=== PATIENT | female | born 1975 | race Caucasian/White ===

== ENCOUNTER 2024-02-27 13:07 | Outpatient (AMB) | payer MEDICAID, SELFPAY ==
[2024-02-27 13:26] VITALS: BP 136/83; PULSE 87; RESP 18; TEMP 36.4; O2SAT 96; BMI 27.6
--- NOTE | 2024-02-27 13:26 | PD.ORTHCLVIS ---
Vital signs 02/27/24 13:26 Height 1.68 m Height Method Stated Weight 77.564 kg Weight Measurement Method Standing Scale BMI 27.6 BP 136/83 H Blood Pressure Source Automatic Cuff Blood Pressure Location Right Upper Arm Position Sitting Respiration 18 Pulse 87 Pulse Source Monitor Temp 97.6 F Temp Source Temporal Artery Scan Pulse Oximetry (%) 96 Oxygen Delivery Method Room Air Med/Allergies Allergies & Medications Allergies No Known Allergies Allergy (Verified 02/27/24 13:27) Medication Reconciliation ascorbic acid (vitamin C) 1,000 mg capsule 1 g PO Q6H 02/27/24 [History Confirmed 02/27/24] cyclobenzaprine 5 mg tablet 5 mg PO QHS 02/27/24 [History Confirmed 02/27/24] fluticasone propionate 50 mcg/actuation blister powder for inhalation 1 inh inhalation BID 02/27/24 [History Confirmed 02/27/24] meloxicam 7.5 mg tablet 7.5 mg PO QDAY #45 tabs 02/27/24 [Rx] metformin 500 mg tablet 500 mg PO QDAY 02/27/24 [History Confirmed 02/27/24] naproxen 500 mg tablet 500 mg PO BID 02/27/24 [History Confirmed 02/27/24] omega-3 fatty acids-fish oil 360 mg-1,200 mg capsule (Fish Oil) 1 cap PO QDAY 02/27/24 [History Confirmed 02/27/24] rhubarb root extract 4 mg tablet (Estroven Complete Menopause Relief) mg PO 02/27/24 [History Confirmed 02/27/24] Subjective Visit Visit for: new patient and knee (BILATERAL) Immunization / Flu Flu Vaccine in the Last 12 Months: No Flu Vaccine Exclusion Criteria: No Exclusion Criteria History of Present Illness Chief complaint: BILATERAL OA Patient is a 48-year-old female with bilateral knee pain worse on the right. This been ongoing for several years. She had an MRI which shows no meniscal tear but bone bruises at that time. There also shows evidence of arthritis. She has continued persistent knee pain worse immediately. She is able to walk with no assistive device. She is tried naproxen with some relief Pain Pain level (0-10): 6 Pain duration: ON AND OFF Pain location: inside (medial) and outside (lateral) Pain quality: dull and aching Pain timing: night and increases with activity Associated signs & symptoms: none Ambulatory data Ambulatory device: none Treatments Number of previous injections: 11 Improvement with previous injections: No Number of Physical Therapy sessions: 12 Improvement with PT: No Improvement with NSAIDS: no Review of Systems Review of Systems: All systems negative unless otherwise noted in HPI. Exam Exam Patient is in no acute distress and is cooperative with the examination today. Breathing is nonlabored. In no respiratory distress. Bilateral extremities were evaluated and demonstrates sensation intact to light touch. Palpable pedal pulses are present. No significant edema is present. Bilateral hips were examined. The patient has no pain with log roll of the hips. Internal rotation to 30 degrees and external rotation to 30 degrees is painless. Negative FADIR. The left knee was examined. The left knee is in [varus] alignment. Range of motion from [0-115] degrees. Knee is stable to varus and valgus as well as AP translation with <5mm. Patient has a [negative] McMurrays. There is [no] pain with patellofemoral compression and [no] crepitus noted. The knee is [tender] to palpation [medially]. The right knee was also examined. The right knee is in [varus] alignment. Range of motion from [0-120] degrees. Knee is stable to varus and valgus as well as AP translation with <5mm. Patient has a [negative] McMurrays. There is [no] pain with patellofemoral compression and [no] crepitus noted. The knee is [tender] to palpation [medially]. X-rays demonstrate mild to moderate arthritis bilaterally. There is medial joint space narrowing. Assessment and Plan Problem List (1) Degenerative arthritis of knee, bilateral: Status: Acute Plan: Patient is a 48-year-old female with bilateral knee pain and bilateral knee arthritis. We discussed nonoperative Options for mild to moderate arthritis. We prescribed her meloxicam discussed that we can do an injection at the next visit. She will need authorization with her insurance. We will see her at the next available visit for injection Office Procedures GNS Level of Care Nursing/Assessment Patient Status: Initial/New Patient Nursing Assessment/Reassesment: Medication Reconciliation, Update PMH in EMR and Vital Signs Coordination of Care: Complex Care and Chronic Disease 1-5, Education Complex Pt/Fam, Consent,records obtained, informed consent, 1 Ins Authorization, Lab and Imaging orders, Results/Orders obtained and Staff clarify orders Special Needs: Language special needs New Patient Charge New Patient Point Assignment: 1124 New Patient Point Charge: GROUP RESERVATIONS COORDINATOR Level 4 (8157-4210) Past Medical History Past Medical History Have you ever been diagnosed with any of the following: Respiratory Problems Smoking: No Smoking Exposure: No
== END 2024-02-27 13:36 | disposition home or self-care (01) ==
PROVIDERS: Supervising Provider Orthopaedic Surgery Adult Reconstructive Orthopaedic Surgery; Visit Provider Orthopaedic Surgery Adult Reconstructive Orthopaedic Surgery
DX: M17.0 Bilateral primary osteoarthritis of knee (principal); M25.562 Pain in left knee; M25.561 Pain in right knee
CPT/HCPCS: 99204; G0463

== ENCOUNTER 2024-03-19 10:05 | Outpatient (AMB) | payer MEDICAID, SELFPAY ==
[2024-03-19 10:33] VITALS: BP 127/84; PULSE 81; RESP 18; TEMP 36.4; O2SAT 97; BMI 27.5
--- NOTE | 2024-03-19 10:33 | PD.ORTHCLVIS ---
Vital signs 03/19/24 10:33 Height 1.68 m Height Method Stated Weight 77.763 kg Weight Measurement Method Standing Scale BMI 27.5 BP 127/84 Blood Pressure Source Automatic Cuff Blood Pressure Location Right Upper Arm Position Sitting Respiration 18 Pulse 81 Pulse Source Monitor Temp 97.6 F Temp Source Temporal Artery Scan Pulse Oximetry (%) 97 Oxygen Delivery Method Room Air Med/Allergies Allergies & Medications Allergies No Known Allergies Allergy (Verified 03/19/24 10:33) Medication Reconciliation ascorbic acid (vitamin C) 1,000 mg capsule 1 g PO Q6H 02/27/24 [History Confirmed 03/19/24] cyclobenzaprine 5 mg tablet 5 mg PO QHS 02/27/24 [History Confirmed 03/19/24] fluticasone propionate 50 mcg/actuation blister powder for inhalation 1 inh inhalation BID 02/27/24 [History Confirmed 03/19/24] meloxicam 7.5 mg tablet 7.5 mg PO QDAY #45 tabs 02/27/24 [Rx Confirmed 03/19/24] metformin 500 mg tablet 500 mg PO QDAY 02/27/24 [History Confirmed 03/19/24] naproxen 500 mg tablet 500 mg PO BID 02/27/24 [History Confirmed 03/19/24] omega-3 fatty acids-fish oil 360 mg-1,200 mg capsule (Fish Oil) 1 cap PO QDAY 02/27/24 [History Confirmed 03/19/24] rhubarb root extract 4 mg tablet (Estroven Complete Menopause Relief) mg PO 02/27/24 [History Confirmed 03/19/24] Subjective Visit Visit for: follow up visit and knee Immunization / Flu Flu Vaccine in the Last 12 Months: Yes Flu Vaccine Exclusion Criteria: Already Received History of Present Illness Chief complaint: REQ KNEE INJECTIONS Patient is a 48-year-old female with bilateral knee pain worse on the right. This been ongoing for several years. She had an MRI which shows no meniscal tear but bone bruises at that time. There also shows evidence of arthritis. She has continued persistent knee pain worse immediately. She is able to walk with no assistive device. She has tried naproxen with some relief. She Wants bilateral knee injections today Pain Pain level (0-10): 4 Pain duration: COMES AND GOES Pain location: outside (lateral) and anterior Pain quality: sharp, dull and aching Pain timing: increases with activity and stairs Associated signs & symptoms: stiffness Ambulatory data Ambulatory device: none Treatments Number of previous injections: 11 Improvement with previous injections: No Number of Physical Therapy sessions: 12 Improvement with PT: No Improvement with NSAIDS: n/a Review of Systems Review of Systems: All systems negative unless otherwise noted in HPI. Exam Exam Patient is in no acute distress and is cooperative with the examination today. Breathing is nonlabored. In no respiratory distress. Bilateral extremities were evaluated and demonstrates sensation intact to light touch. Palpable pedal pulses are present. No significant edema is present. Bilateral hips were examined. The patient has no pain with log roll of the hips. Internal rotation to 30 degrees and external rotation to 30 degrees is painless. Negative FADIR. The left knee was examined. The left knee is in [varus] alignment. Range of motion from [0-115] degrees. Knee is stable to varus and valgus as well as AP translation with <5mm. Patient has a [negative] McMurrays. There is [no] pain with patellofemoral compression and [no] crepitus noted. The knee is [tender] to palpation [medially]. The right knee was also examined. The right knee is in [varus] alignment. Range of motion from [0-120] degrees. Knee is stable to varus and valgus as well as AP translation with <5mm. Patient has a [negative] McMurrays. There is [no] pain with patellofemoral compression and [no] crepitus noted. The knee is [tender] to palpation [medially]. X-rays demonstrate mild to moderate arthritis bilaterally. There is medial joint space narrowing. Assessment and Plan Problem List (1) Degenerative arthritis of knee, bilateral: Status: Acute Plan: Patient is a 48-year-old female with bilateral knee pain and bilateral knee arthritis. We discussed nonoperative Options for mild to moderate arthritis. We prescribed her meloxicam discussed that we can do an injection at the next visit. She will need authorization with her insurance. Recommend knee cortisone injections as patient would like to proceed with conservative treatment at this time. The risks and benefits of the procedure were reviewed with the patient and patient gave verbal consent to continue with the procedure. Procedure: performed by Dr. Landon Using sterile technique the Bilateral knees were thoroughly prepped with alcohol, and approximately 1 cc of Kenalog 40 mg/mL and 4 cc of 1% lidocaine was injected into each knee without resistance into the medial tibial femoral joint space. The patient tolerated the procedure. Office Procedures GNS Level of Care Nursing/Assessment Patient Status: Established Patient Nursing Assessment/Reassesment: Medication Reconciliation, Update PMH in EMR and Vital Signs Coordination of Care: Complex Care and Chronic Disease 1-5, Education Complex Pt/Fam, Consent,records obtained, informed consent, Results/Orders obtained and Staff clarify orders Special Needs: Language special needs Established Patient Charge Established Patient Point Assignment: 95 Established Patient Point Charge: EP Level 3 (80-115) Surgical Proc/IM SQ injection Major Surgical Procedure: Yes (bilateral knee injection) Medication Given Medication Given Medication Given: Yes Documented Dose Given: 8 Route: Infiitration Medication Given Medication Given Medication Given: Yes Documented Dose Given: 2 Route: Infiitration Office Meds Xylocaine 10 mg/mL (1 %) injection solution Performing Provider: Robert Landon MD Performing Location: [facility] Administered by: Robert Landon MD on 03/19/24 13:31 Dose Route Admin Location Dispensed Lot Number Expiration Date [facility] [employer] Tender 40 mL Infiltration 40 mL [id number] 12/21/26 41656-201-01 [employer] triamcinolone acetonide 40 mg/mL suspension for injection Performing Provider: Robert Landon MD Performing Location: [facility] Administered by: Robert Landon MD on 03/19/24 13:31 Dose Route Admin Location Dispensed Lot Number Expiration Date [facility] [employer] Tender 80 mg Infiltration 2 mL [id number] 09/20/25 6032-2272-11 [employer]ENTER[employer] Past Medical History Past Medical History Have you ever been diagnosed with any of the following: Respiratory Problems Smoking: No Smoking Exposure: No
== END 2024-03-19 10:50 | disposition home or self-care (01) ==
LOC: HODSRG 10:05
PROVIDERS: Supervising Provider Orthopaedic Surgery Adult Reconstructive Orthopaedic Surgery; Visit Provider Orthopaedic Surgery Adult Reconstructive Orthopaedic Surgery
DX: M17.0 Bilateral primary osteoarthritis of knee (principal); M25.562 Pain in left knee; M25.561 Pain in right knee
CPT/HCPCS: 20610; 99213; J3301; J3490; G0463

== ENCOUNTER 2024-06-21 14:59 | Outpatient (AMB) | payer MEDICAID, SELFPAY ==
[2024-06-21 15:18] VITALS: BP 144/83; PULSE 82; RESP 19; TEMP 36.4; O2SAT 97; BMI 28.0
--- NOTE | 2024-06-21 15:18 | ORTHONT_ITS ---
Vital signs 06/21/24 15:18 Height 1.68 m Height Method Stated Weight 79.038 kg Weight Measurement Method Standing Scale BMI 28.0 BP 144/83 H Blood Pressure Source Automatic Cuff Blood Pressure Location Right Lower Arm Position Sitting Respiration 19 Pulse 82 Pulse Source Monitor Temp 97.6 F Temp Source Temporal Artery Scan Pulse Oximetry (%) 97 Oxygen Delivery Method Room Air Med/Allergies Allergies & Medications Allergies No Known Allergies Allergy (Verified 06/21/24 15:19) Medication Reconciliation ascorbic acid (vitamin C) 1,000 mg capsule 1 g PO Q6H 02/27/24 [History Confirmed 06/21/24] cyclobenzaprine 5 mg tablet 5 mg PO QHS 02/27/24 [History Confirmed 06/21/24] fluticasone propionate 50 mcg/actuation blister powder for inhalation 1 inh inhalation BID 02/27/24 [History Confirmed 06/21/24] meloxicam 7.5 mg tablet 7.5 mg PO QDAY #45 tabs 02/27/24 [Rx Confirmed 06/21/24] metformin 500 mg tablet 500 mg PO QDAY 02/27/24 [History Confirmed 06/21/24] naproxen 500 mg tablet 500 mg PO BID 02/27/24 [History Confirmed 06/21/24] omega-3 fatty acids-fish oil 360 mg-1,200 mg capsule (Fish Oil) 1 cap PO QDAY 02/27/24 [History Confirmed 06/21/24] rhubarb root extract 4 mg tablet (Estroven Complete Menopause Relief) mg PO 02/27/24 [History Confirmed 06/21/24] Exam Exam Patient is in no acute distress and is cooperative with the examination today. Breathing is nonlabored. In no respiratory distress. Bilateral extremities were evaluated and demonstrates sensation intact to light touch. Palpable pedal pulses are present. No significant edema is present. Bilateral hips were examined. The patient has no pain with log roll of the hips. Internal rotation to 30 degrees and external rotation to 30 degrees is painless. Negative FADIR. The left knee was examined. The left knee is in [varus] alignment. Range of motion from [0-115] degrees. Knee is stable to varus and valgus as well as AP translation with <5mm. Patient has a [negative] McMurrays. There is [no] pain with patellofemoral compression and [no] crepitus noted. The knee is [tender] to palpation [medially]. The right knee was also examined. The right knee is in [varus] alignment. Range of motion from [0-120] degrees. Knee is stable to varus and valgus as well as AP translation with <5mm. Patient has a [negative] McMurrays. There is [no] pain with patellofemoral compression and [no] crepitus noted. The knee is [tender] to palpation [medially]. X-rays demonstrate mild to moderate arthritis bilaterally. There is medial joint space narrowing. Assessment and Plan Problem List (1) Degenerative arthritis of knee, bilateral: Status: Acute Plan: Patient is a 48-year-old female with bilateral knee pain and bilateral knee arthritis. We discussed nonoperative Options for mild to moderate arthritis. We will plan for a right knee injection today. Recommend knee cortisone injection as patient would like to proceed with conservative treatment at this time. The risks and benefits of the procedure were reviewed with the patient and patient gave verbal consent to continue with the procedure. Procedure: performed by Dr. Landon Using sterile technique the Right knee was thoroughly prepped with alcohol, and approximately 1 cc of Kenalog 40 mg/mL and 4 cc of 1% lidocaine was injected without resistance into the medial tibial femoral joint space. The patient tolerated the procedure. Office Procedures GNS Level of Care Nursing/Assessment Patient Status: Established Patient Nursing Assessment/Reassesment: Medication Reconciliation, Update PMH in EMR and Vital Signs Coordination of Care: Complex Care and Chronic Disease 1-5, Education Complex Pt/Fam, Consent,records obtained, informed consent, Education Simp Pt/Fam, Results/Orders obtained and Staff clarify orders Special Needs: Language special needs Established Patient Charge Established Patient Point Assignment: 110 Established Patient Point Charge: EP Level 3 (80-115) Surgical Proc/IM SQ injection Major Surgical Procedure: Yes (KNEE INJECTION) Medication Given Medication Given Medication Given: Yes Documented Dose Given: 4 Route: Infiitration Medication Given Medication Given Medication Given: Yes Documented Dose Given: 1 Route: Infiitration Office Meds Xylocaine 10 mg/mL (1 %) injection solution Performing Provider: Robert Landon MD Performing Location: [facility] Administered by: Robert Landon MD on 06/21/24 15:37 Dose Route Admin Location Dispensed Lot Number Expiration Date [employer] Room Supervisor 20 mL Infiltration 20 mL [id number] 10/22/27 28262-522-92 [employer]ADA KASPER triamcinolone acetonide 40 mg/mL suspension for injection Performing Provider: Robert Landon MD Performing Location: [facility] Administered by: Robert Landon MD on 06/21/24 15:37 Dose Route Admin Location Dispensed Lot Number Expiration Date [facility] Cut[employer] Room Supervisor 40 mg Infiltration KNEE 1 mL [id number] 09/20/25 5577-3197-08 TEV[employer] PARENTERAL MA Intake Visit Data Collection New Patient or Established: Established Patient (seen at [facility] within 3 years) Reason for Visit:: 3MONTH F/U KNEE INJECTION BILATERAL Director Of Business Continuity Required: Yes PCP or OBGYN visit in last 3 months: Yes Hx Now: No Do You Feel Safe at Home: Yes Authorities Contacted: N/A Questionairres Past Medical History Past Medical History Have you ever been diagnosed with any of the following: Respiratory Problems Smoking: No Smoking Exposure: No Subjective Visit Visit for: follow up visit, knee (BILATERAL) and injections Immunization / Flu Flu Vaccine in the Last 12 Months: Yes Flu Vaccine Exclusion Criteria: Already Received History of Present Illness Chief complaint: right knee pain Patient is a 48-year-old female with bilateral knee pain worse on the right. This been ongoing for several years. She had an MRI which shows no meniscal t ear but bone bruises at that time. There also shows evidence of mild arthritis. She has continued persistent knee pain worse immediately. She is able to walk with no assistive device. She has tried naproxen with some relief. She Wants bilateral knee injections today Personal History Red flag PMH: none Pain Pain level (0-10): 7 Pain duration: RIGHT KNEE Pain location: inside (medial) and outside (lateral) Pain timing: stairs Associated signs & symptoms: weakness and stiffness Ambulatory data Ambulatory device: none Treatments Number of previous injections: 1 Improvement with previous injections: Yes Improvement with PT: Yes Improvement with NSAIDS: yes Review of Systems Review of Systems: All systems negative unless otherwise noted in HPI.
== END 2024-06-21 15:48 | disposition home or self-care (01) ==
PROVIDERS: Supervising Provider Orthopaedic Surgery Adult Reconstructive Orthopaedic Surgery; Visit Provider Orthopaedic Surgery Adult Reconstructive Orthopaedic Surgery
DX: M17.0 Bilateral primary osteoarthritis of knee (principal)
CPT/HCPCS: 20610; 99213; J3301; J3490; G0463

== ENCOUNTER 2024-09-17 14:30 | Outpatient (AMB) | payer MEDICAID, SELFPAY ==
[2024-09-17 14:40] VITALS: BP 123/79; PULSE 89; RESP 18; TEMP 36.1; O2SAT 96; BMI 28.3
--- NOTE | 2024-09-17 14:40 | ORTHONT_ITS ---
Vital signs 09/17/24 14:40 Height 1.68 m Height Method Stated Weight 79.832 kg Weight Measurement Method Standing Scale BMI 28.3 BP 123/79 Blood Pressure Source Automatic Cuff Blood Pressure Location Right Upper Arm Position Sitting Respiration 18 Pulse 89 Pulse Source Monitor Temp 96.9 F Temp Source Temporal Artery Scan Pulse Oximetry (%) 96 Oxygen Delivery Method Room Air Med/Allergies Allergies & Medications Allergies No Known Allergies Allergy (Verified 09/17/24 14:41) Medication Reconciliation ascorbic acid (vitamin C) 1,000 mg capsule 1 g PO Q6H 02/27/24 [History Confirmed 09/17/24] cyclobenzaprine 5 mg tablet 5 mg PO QHS 02/27/24 [History Confirmed 09/17/24] fluticasone propionate 50 mcg/actuation blister powder for inhalation 1 inh inhalation BID 02/27/24 [History Confirmed 09/17/24] metformin 500 mg tablet 500 mg PO QDAY 02/27/24 [History Confirmed 09/17/24] naproxen 500 mg tablet 500 mg PO BID 02/27/24 [History Confirmed 09/17/24] omega-3 fatty acids-fish oil 360 mg-1,200 mg capsule (Fish Oil) 1 cap PO QDAY 02/27/24 [History Confirmed 09/17/24] rhubarb root extract 4 mg tablet (Estroven Complete Menopause Relief) mg PO 02/27/24 [History Confirmed 09/17/24] meloxicam 7.5 mg tablet 7.5 mg PO QDAY #45 tabs 09/17/24 [Rx] Exam Exam Patient is in no acute distress and is cooperative with the examination today. Breathing is nonlabored. In no respiratory distress. Bilateral extremities were evaluated and demonstrates sensation intact to light touch. Palpable pedal pulses are present. No significant edema is present. Bilateral hips were examined. The patient has no pain with log roll of the hips. Internal rotation to 30 degrees and external rotation to 30 degrees is painless. Negative FADIR. The left knee was examined. The left knee is in [varus] alignment. Range of motion from [0-115] degrees. Knee is stable to varus and valgus as well as AP translation with <5mm. Patient has a [negative] McMurrays. There is [no] pain with patellofemoral compression and [no] crepitus noted. The knee is [tender] to palpation [medially]. The right knee was also examined. The right knee is in [varus] alignment. Range of motion from [0-120] degrees. Knee is stable to varus and valgus as well as AP translation with <5mm. Patient has a [negative] McMurrays. There is [no] pain with patellofemoral compression and [no] crepitus noted. The knee is [tender] to palpation [medially]. X-rays demonstrate mild to moderate arthritis bilaterally. There is medial joint space narrowing. Assessment and Plan Problem List (1) Degenerative arthritis of knee, bilateral: Status: Acute Plan: Patient is a 48-year-old female with bilateral knee pain and bilateral knee arthritis. We discussed nonoperative Options for mild to moderate arthritis. We will see how she does with medication and bilateral knee injections today Recommend knee cortisone injections as patient would like to proceed with conservative treatment at this time. The risks and benefits of the procedure were reviewed with the patient and patient gave verbal consent to continue with the procedure. Procedure: performed by Dr. Landon Using sterile technique the Bilateral knees were thoroughly prepped with alcohol, and approximately 1 cc of Kenalog 40 mg/mL and 4 cc of 1% lidocaine was injected into each knee without resistance into the medial tibial femoral joint space. The patient tolerated the procedure. Office Procedures GNS Level of Care Nursing/Assessment Patient Status: Established Patient Nursing Assessment/Reassesment: Medication Reconciliation, Update PMH in EMR and Vital Signs Coordination of Care: Complex Care and Chronic Disease 1-5, Consent,records obtained, informed consent, Education Simp Pt/Fam, Results/Orders obtained and Staff clarify orders Special Needs: Language special needs ([place]ALL[place] ) Established Patient Charge Established Patient Point Assignment: 90 Established Patient Point Charge: EP Level 3 (80-115) Surgical Proc/IM SQ injection Major Surgical Procedure: Yes (BILATERAL KNEE PAIN) Medication Given Medication Given Medication Given: Yes Documented Dose Given: 8 Route: Infiitration Medication Given Medication Given Medication Given: Yes Documented Dose Given: 2 Route: Infiitration Office Meds Xylocaine 10 mg/mL (1 %) injection solution Performing Provider: Robert Landon MD Performing Location: [facility] Administered by: Robert Landon MD on 09/17/24 14:55 Dose Route Admin Location Dispensed Lot Number Expiration Date [facility] Consultant Rn 40 mL Infiltration 40 mL [id number] 08/22/27 46347-847-68 [employer]ADA [employer] triamcinolone acetonide 40 mg/mL suspension for injection Performing Provider: Robert Landon MD Performing Location: [facility] Administered by: Robert Landon MD on 09/17/24 14:55 Dose Route Admin Location Dispensed Lot Number Expiration Date [facility] Consultant Rn 80 mg Infiltration 2 mL [id number] 04/22/26 9808-1621-52 [employer]EV[employer] PARENTER[employer] [place] Intake Visit Data Collection New Patient or Established: Established Patient (seen at [facility] within 3 years) Reason for Visit:: FU 3 MNTH INJECTION Seen by Clinical Staff ONLY (RN/MA): No Business Developer Required: Yes PCP or OBGYN visit in last 3 months: Yes Hx Now: No Do You Feel Safe at Home: Yes Authorities Contacted: N/A Questionairres Past Medical History Past Medical History Have you ever been diagnosed with any of the following: Respiratory Problems Smoking: No Smoking Exposure: No Subjective Visit Visit for: knee (BILATERAL KNEE PAIN ) Immunization / Flu Flu Vaccine in the Last 12 Months: Yes Flu Vaccine Exclusion Criteria: Already Received History of Present Illness Chief complaint: right knee pain Patient is a 48-year-old female with bilateral knee pain worse on the right. This been ongoing for several years. She had an MRI which shows no meniscal t ear but bone bruises at that time. There also shows evidence of mild arthritis. She has continued persistent knee pain worse immediately. She is able to walk with no assistive device. She has tried naproxen with some relief. Personal History Red flag PMH: none Pain Pain level (0-10): 7 Pain duration: 2 WEEKS Pain location: anterior Pain quality: aching and shocking Pain timing: night and increases with activity Associated signs & symptoms: numbness, weakness and stiffness Ambulatory data Ambulatory device: none Walking distance (minutes): 30 Treatments Number of previous injections: 2 Improvement with previous injections: No Number of Physical Therapy sessions: 12 (SOME CHANGE) Improvement with PT: Yes Improvement with NSAIDS: n/a Review of Systems Review of Systems: All systems negative unless otherwise noted in HPI.
== END 2024-09-17 15:02 | disposition home or self-care (01) ==
LOC: HODSRG 14:30
PROVIDERS: Supervising Provider Orthopaedic Surgery Adult Reconstructive Orthopaedic Surgery; Visit Provider Orthopaedic Surgery Adult Reconstructive Orthopaedic Surgery
DX: M17.0 Bilateral primary osteoarthritis of knee (principal); M25.562 Pain in left knee; M25.561 Pain in right knee
CPT/HCPCS: 20610; 99213; J3301; J3490; G0463

== ENCOUNTER 2024-12-19 14:27 | Outpatient (AMB) | payer MEDICAID, SELFPAY ==
--- NOTE | 2024-12-19 14:39 | ORTHONT_ITS ---
Vital signs 12/19/24 14:41 Height 1.68 m Height Method Stated Weight 79.889 kg Weight Measurement Method Standing Scale BMI 28.3 BP 144/79 H Blood Pressure Source Automatic Cuff Blood Pressure Location Left Upper Arm Position Sitting Respiration 18 Pulse 82 Pulse Source Monitor Temp 97.2 F Temp Source Temporal Artery Scan Pulse Oximetry (%) 97 Oxygen Delivery Method Room Air Med/Allergies Allergies & Medications Allergies No Known Allergies Allergy (Verified 12/19/24 14:52) Medication Reconciliation ascorbic acid (vitamin C) 1,000 mg capsule 1 g PO Q6H 02/27/24 [History Confirmed 12/19/24] cyclobenzaprine 5 mg tablet 5 mg PO QHS 02/27/24 [History Confirmed 12/19/24] fluticasone propionate 50 mcg/actuation blister powder for inhalation 1 inh inhalation BID 02/27/24 [History Confirmed 12/19/24] metformin 500 mg tablet 500 mg PO QDAY 02/27/24 [History Confirmed 12/19/24] naproxen 500 mg tablet 500 mg PO BID 02/27/24 [History Confirmed 12/19/24] omega-3 fatty acids-fish oil 360 mg-1,200 mg capsule (Fish Oil) 1 cap PO QDAY 02/27/24 [History Confirmed 12/19/24] rhubarb root extract 4 mg tablet (Estroven Complete Menopause Relief) mg PO 02/27/24 [History Confirmed 12/19/24] meloxicam 7.5 mg tablet 7.5 mg PO QDAY #45 tabs 11/05/24 [Rx Confirmed 12/19/24] Exam Exam Patient is in no acute distress and is cooperative with the examination today. Breathing is nonlabored. In no respiratory distress. Bilateral extremities were evaluated and demonstrates sensation intact to light touch. Palpable pedal pulses are present. No significant edema is present. Bilateral hips were examined. The patient has no pain with log roll of the hips. Internal rotation to 30 degrees and external rotation to 30 degrees is painless. Negative FADIR. The left knee was examined. The left knee is in [varus] alignment. Range of motion from [0-115] degrees. Knee is stable to varus and valgus as well as AP translation with <5mm. Patient has a [negative] McMurrays. There is [no] pain with patellofemoral compression and [no] crepitus noted. The knee is [tender] to palpation [medially]. The right knee was also examined. The right knee is in [varus] alignment. Range of motion from [0-120] degrees. Knee is stable to varus and valgus as well as AP translation with <5mm. Patient has a [negative] McMurrays. There is [no] pain with patellofemoral compression and [no] crepitus noted. The knee is [tender] to palpation [medially]. X-rays demonstrate mild to moderate arthritis bilaterally. There is medial joint space narrowing. Assessment and Plan Problem List (1) Degenerative arthritis of knee, bilateral: Status: Acute Plan: Patient is a 48-year-old female with bilateral knee pain and bilateral knee arthritis. We discussed nonoperative Options for mild to moderate arthritis. We will see how she does with medication and bilateral knee injections today Recommend knee cortisone injection as patient would like to proceed with conservative treatment at this time. The risks and benefits of the procedure were reviewed with the patient and patient gave verbal consent to continue with the procedure. Procedure: performed by Dr. Landon Using sterile technique the left knee was thoroughly prepped with alcohol, and approximately 1 cc of Depo-Medrol 80mg/mL and 4 cc of 0.2% ropivacaine was injected without resistance into the medial tibial femoral joint space. The patient tolerated the procedure. Recommend knee cortisone injection as patient would like to proceed with conservative treatment at this time. The risks and benefits of the procedure were reviewed with the patient and patient gave verbal consent to continue with the procedure. Procedure: performed by Dr. Landon Using sterile technique the Right knee was thoroughly prepped with alcohol, and approximately 1 cc of Depo-Medrol 80mg/mL and 4 cc of 0.2% ropivacaine was injected without resistance into the medial tibial femoral joint space. The patient tolerated the procedure. Office Procedures GNS Level of Care Nursing/Assessment Patient Status: Established Patient Nursing Assessment/Reassesment: Medication Reconciliation, Update PMH in EMR and Vital Signs Coordination of Care: Complex Care and Chronic Disease 1-5, Education Complex Pt/Fam, Consent,records obtained, informed consent, Results/Orders obtained and Staff clarify orders Special Needs: Language special needs Established Patient Charge Established Patient Point Assignment: 95 Established Patient Point Charge: EP Level 3 (80-115) Surgical Proc/IM SQ injection Major Surgical Procedure: Yes (KNEE INJECTION ) Medication Given Medication Given Medication Given: Yes Documented Dose Given: 1 Route: Infiitration Medication Given Medication Given Medication Given: Yes Documented Dose Given: 1 Route: Infiitration Medication Given Medication Given Medication Given: Yes Documented Dose Given: 4 Route: Infiitration Medication Given Medication Given Medication Given: Yes Documented Dose Given: 4 Route: Infiitration Office Meds methylprednisolone acetate 80 mg/mL suspension for injection Performing Provider: Robert Landon MD Performing Location: [facility] Administered by: Robert Landon MD on 12/19/24 15:13 Dose Route Admin Location Dispensed Lot Number Expiration Date [facility] [employer] Social Worker 80 mg intra-articular KNEE 1 mL [id number] 09/21/26 [address]-8 [employer] methylprednisolone acetate 80 mg/mL suspension for injection Performing Provider: Robert Landon MD Performing Location: [facility] Administered by: Robert Landon MD on 12/19/24 15:13 Dose Route Admin Location Dispensed Lot Number Expiration Date [facility] Marriage And Family Social Worker 80 mg intra-articular KNEE 1 mL [id number] 09/21/26 [address]-8 [employer] ropivacaine (PF) 2 mg/mL (0.2 %) injection solution Performing Provider: Robert Landon MD Performing Location: [facility] Administered by: Robert Landon MD on 12/19/24 15:13 Dose Route Admin Location Dispensed Lot Number Expiration Date [place] [employer] Social Worker 20 mL Infiltration KNEE 20 mL [id number] 05/24/27 54535-811-27 [facility] ropivacaine (PF) 2 mg/mL (0.2 %) injection solution Performing Provider: Robert Landon MD Performing Location: [facility] Administered by: Robert Landon MD on 12/19/24 15:13 Dose Route Admin Location Dispensed Lot Number Expiration Date [place] [employer] Social Worker 20 mL Infiltration KNEE 20 mL [id number] 05/24/27 44601-271-60 [facility] [place] Intake Visit Data Collection New Patient or Established: Established Patient (seen at [facility] within 3 years) Reason for Visit:: 3 MONTH BILATERAL KNEE INJECTION Seen by Clinical Staff ONLY (RN/MA): No Recovery Agent Required: Yes PCP or OBGYN visit in last 3 months: Yes Hx Now: No Do You Feel Safe at Home: Yes Authorities Contacted: N/A Questionairres Past Medical History Past Medical History Have you ever been diagnosed with any of the following: Respiratory Problems Smoking: No Smoking Exposure: No Subjective Visit Visit for: knee (BILATERAL KNEE PAIN ) Immunization / Flu Flu Vaccine in the Last 12 Months: Yes Flu Vaccine Exclusion Criteria: Already Received History of Present Illness Chief complaint: right knee pain Patient is a 48-year-old female with bilateral knee pain worse on the right. This been ongoing for several years. She had an MRI which shows no meniscal tear but bone bruises at that time. There also shows evidence of mild arthritis. She has continued persistent knee pain worse immediately. She is able to walk with no assistive device. She has tried naproxen with some relief. She did well with the last injections and wants new ones Personal History Red flag PMH: none Pain Pain level (0-10): 7 Pain duration: 2 WEEKS Pain location: anterior Pain quality: aching and shocking Pain timing: night and increases with activity Associated signs & symptoms: numbness, weakness and stiffness Ambulatory data Ambulatory device: none Walking distance (minutes): 30 Treatments Number of previous injections: 2 Improvement with previous injections: No Number of Physical Therapy sessions: 12 (SOME CHANGE) Improvement with PT: Yes Improvement with NSAIDS: n/a Review of Systems Review of Systems: All systems negative unless otherwise noted in HPI.
[2024-12-19 14:41] VITALS: BP 144/79; PULSE 82; RESP 18; TEMP 36.2; O2SAT 97; BMI 28.3
== END 2024-12-19 14:54 | disposition home or self-care (01) ==
PROVIDERS: Supervising Provider Orthopaedic Surgery Adult Reconstructive Orthopaedic Surgery; Visit Provider Orthopaedic Surgery Adult Reconstructive Orthopaedic Surgery
DX: M17.0 Bilateral primary osteoarthritis of knee (principal); M25.562 Pain in left knee; M25.561 Pain in right knee
CPT/HCPCS: 20610; 99213; J1010; J2795; G0463

== ENCOUNTER 2025-03-27 13:56 | Outpatient (AMB) | payer MEDICAID, SELFPAY ==
--- NOTE | 2025-03-27 14:47 | PD.ORTHCLVIS ---
Med/Allergies Allergies & Medications Allergies No Known Allergies Allergy (Verified 12/19/24 14:52) Exam Exam Patient is in no acute distress and is cooperative with the examination today. Breathing is nonlabored. In no respiratory distress. Bilateral extremities were evaluated and demonstrates sensation intact to light touch. Palpable pedal pulses are present. No significant edema is present. Bilateral hips were examined. The patient has no pain with log roll of the hips. Internal rotation to 30 degrees and external rotation to 30 degrees is painless. Negative FADIR. The left knee was examined. The left knee is in [varus] alignment. Range of motion from [0-115] degrees. Knee is stable to varus and valgus as well as AP translation with <5mm. Patient has a [negative] McMurrays. There is [no] pain with patellofemoral compression and [no] crepitus noted. The knee is [tender] to palpation [medially]. The right knee was also examined. The right knee is in [varus] alignment. Range of motion from [0-120] degrees. Knee is stable to varus and valgus as well as AP translation with <5mm. Patient has a [negative] McMurrays. There is [no] pain with patellofemoral compression and [no] crepitus noted. The knee is [tender] to palpation [medially]. X-rays demonstrate mild to moderate arthritis bilaterally. There is medial joint space narrowing. Assessment and Plan Problem List (1) Degenerative arthritis of knee, bilateral: Status: Acute Plan: Patient is a 48-year-old female with bilateral knee pain and bilateral knee arthritis. We discussed nonoperative Options for mild to moderate arthritis. We will see how she does with medication and bilateral knee injections today Recommend knee cortisone injection as patient would like to proceed with conservative treatment at this time. The risks and benefits of the procedure were reviewed with the patient and patient gave verbal consent to continue with the procedure. Procedure: performed by Dr. Landon Using sterile technique the left knee was thoroughly prepped with alcohol, and approximately 1 cc of Depo-Medrol 80mg/mL and 4 cc of 0.2% ropivacaine was injected without resistance into the medial tibial femoral joint space. The patient tolerated the procedure. Recommend knee cortisone injection as patient would like to proceed with conservative treatment at this time. The risks and benefits of the procedure were reviewed with the patient and patient gave verbal consent to continue with the procedure. Procedure: performed by Dr. Landon Using sterile technique the Right knee was thoroughly prepped with alcohol, and approximately 1 cc of Depo-Medrol 80mg/mL and 4 cc of 0.2% ropivacaine was injected without resistance into the medial tibial femoral joint space. The patient tolerated the procedure. Questionairres Past Medical History Past Medical History Have you ever been diagnosed with any of the following: Respiratory Problems Smoking: No Smoking Exposure: No Subjective Visit Visit for: knee (BILATERAL KNEE PAIN ) Immunization / Flu Flu Vaccine in the Last 12 Months: Yes Flu Vaccine Exclusion Criteria: Already Received History of Present Illness Chief complaint: right knee pain Patient is a 48-year-old female with bilateral knee pain worse on the right. This been ongoing for several years. She had an MRI which shows no meniscal tear but bone bruises at that time. There also shows evidence of mild arthritis. She has continued persistent knee pain worse immediately. She is able to walk with no assistive device. She has tried naproxen with some relief. She did well with the last injections and wants new ones Personal History Red flag PMH: none Pain Pain level (0-10): 7 Pain duration: 2 WEEKS Pain location: anterior Pain quality: aching and shocking Pain timing: night and increases with activity Associated signs & symptoms: numbness, weakness and stiffness Ambulatory data Ambulatory device: none Walking distance (minutes): 30 Treatments Number of previous injections: 2 Improvement with previous injections: No Number of Physical Therapy sessions: 12 (SOME CHANGE) Improvement with PT: Yes Improvement with NSAIDS: n/a Review of Systems Review of Systems: All systems negative unless otherwise noted in HPI.
--- NOTE | 2025-03-27 15:09 | ORTHONT_ITS ---
Vital signs 03/27/25 15:21 Height 1.68 m Height Method Measured Weight 79.889 kg Weight Measurement Method Standing Scale BMI 28.3 BP 130/84 Blood Pressure Source Automatic Cuff Blood Pressure Location Left Upper Arm Position Sitting Respiration 18 Pulse 91 Pulse Source Monitor Temp 97.8 F Temp Source Temporal Artery Scan Pulse Oximetry (%) 97 Oxygen Delivery Method Room Air Med/Allergies Allergies & Medications Allergies No Known Allergies Allergy (Verified 03/27/25 15:22) Medication Reconciliation ascorbic acid (vitamin C) 1,000 mg capsule 1 g PO Q6H 02/27/24 [History Confirmed 03/27/25] cyclobenzaprine 5 mg tablet 5 mg PO QHS 02/27/24 [History Confirmed 03/27/25] fluticasone propionate 50 mcg/actuation blister powder for inhalation 1 inh inhalation BID 02/27/24 [History Confirmed 03/27/25] metformin 500 mg tablet 500 mg PO QDAY 02/27/24 [History Confirmed 03/27/25] naproxen 500 mg tablet 500 mg PO BID 02/27/24 [History Confirmed 03/27/25] omega-3 fatty acids-fish oil 360 mg-1,200 mg capsule (Fish Oil) 1 cap PO QDAY 02/27/24 [History Confirmed 03/27/25] rhubarb root extract 4 mg tablet (Estroven Complete Menopause Relief) mg PO 02/27/24 [History Confirmed 03/27/25] meloxicam 7.5 mg tablet 7.5 mg PO QDAY #45 tabs 11/05/24 [Rx Confirmed 03/27/25] Exam Exam Patient is in no acute distress and is cooperative with the examination today. Breathing is nonlabored. In no respiratory distress. Bilateral extremities were evaluated and demonstrates sensation intact to light touch. Palpable pedal pulses are present. No significant edema is present. Bilateral hips were examined. The patient has no pain with log roll of the hips. Internal rotation to 30 degrees and external rotation to 30 degrees is painless. Negative FADIR. The left knee was examined. The left knee is in [varus] alignment. Range of motion from [0-115] degrees. Knee is stable to varus and valgus as well as AP translation with <5mm. Patient has a [negative] [place]. There is [no] pain with patellofemoral compression and [no] crepitus noted. The knee is [tender] to palpation [medially]. The right knee was also examined. The right knee is in [varus] alignment. Range of motion from [0-120] degrees. Knee is stable to varus and valgus as well as AP translation with <5mm. Patient has a [negative] Mc[place]. There is [no] pain with patellofemoral compression and [no] crepitus noted. The knee is [tender] to palpation [medially]. X-rays demonstrate mild to moderate arthritis bilaterally. There is medial joint space narrowing. Assessment and Plan Problem List (1) Degenerative arthritis of knee, bilateral: Status: Acute Plan: Patient is a 48-year-old female with bilateral knee pain and bilateral knee arthritis. We discussed nonoperative Options for mild to moderate arthritis. We will see how she does with medication and bilateral knee injections today Recommend knee cortisone injection as patient would like to proceed with conservative treatment at this time. The risks and benefits of the procedure were reviewed with the patient and patient gave verbal consent to continue with the procedure. Procedure: performed by Dr. Landon Using sterile technique the left knee was thoroughly prepped with alcohol, and approximately 1 cc of Depo-Medrol 80mg/mL and 4 cc of 0.2% ropivacaine was injected without resistance into the medial tibial femoral joint space. The patient tolerated the procedure. Recommend knee cortisone injection as patient would like to proceed with conservative treatment at this time. The risks and benefits of the procedure were reviewed with the patient and patient gave verbal consent to continue with the procedure. Procedure: performed by Dr. Landon Using sterile technique the Right knee was thoroughly prepped with alcohol, and approximately 1 cc of Depo-Medrol 80mg/mL and 4 cc of 0.2% ropivacaine was injected without resistance into the medial tibial femoral joint space. The patient tolerated the procedure. Office Procedures GNS Level of Care Nursing/Assessment Patient Status: Established Patient Nursing Assessment/Reassesment: Medication Reconciliation, Update PMH in EMR and Vital Signs Coordination of Care: Complex Care and Chronic Disease 1-5, Education Complex Pt/Fam, Consent,records obtained, informed consent, Results/Orders obtained and Staff clarify orders Established Patient Charge Established Patient Point Assignment: 95 Established Patient Point Charge: EP Level 3 (80-115) Surgical Proc/IM SQ injection Minor Surgical Procedure: Yes (KNEE INJECTION ) Medication Given Medication Given Medication Given: Yes Documented Dose Given: 1 Route: Infiitration Medication Given Medication Given Medication Given: Yes Documented Dose Given: 4 Route: Infiitration Office Meds methylprednisolone acetate 80 mg/mL suspension for injection Performing Provider: Robert Landon MD Performing Location: [facility] Administered by: Robert Landon MD on 03/27/25 15:25 Dose Route Admin Location Dispensed Lot Number Expiration Date Pack age [facility] Classification Control Clerk 160 mg intra-articular KNEE 2 mL [id number] 11/21/26 [address]-3 [id number] [employer] ropivacaine (PF) 2 mg/mL (0.2 %) injection solution Performing Provider: Robert aLndon MD Performing Location: [facility] Administered by: Robert Landon MD on 03/27/25 15:25 Dose Route Admin Location Dispensed Lot Number Expiration Date Pack age [facility] Classification Control Clerk 40 mL Infiltration KNEE 40 mL [id number] 05/24/27 04738-051-38 [id number] [facility] Intake Visit Data Collection New Patient or Established: Established Patient (seen at [facility] within 3 years) Reason for Visit:: 3 MONTH F/U BILATERAL KNEE INJECTION Seen by Clinical Staff ONLY (RN/MA): No Molding Machine Operator Required: No PCP or OBGYN visit in last 3 months: Yes Hx Now: No Do You Feel Safe at Home: Yes Authorities Contacted: N/A Questionairres Past Medical History Past Medical History Have you ever been diagnosed with any of the following: Respiratory Problems Smoking: No Smoking Exposure: No Subjective Visit Visit for: follow up visit and knee Immunization / Flu Flu Vaccine in the Last 12 Months: No Flu Vaccine Exclusion Criteria: Refused by Patient History of Present Illness Chief complaint: 3 MONTH F/U BL KNEE INJECTION Patient is a 48-year-old female with bilateral knee pain worse on the right. This been ongoing for several years. She had an MRI which shows no meniscal tear but bone bruises at that time. There also shows evidence of mild arthritis. She has continued persistent knee pain worse immediately. She is able to walk with no assistive device. She has tried naproxen with some relief. She did well with the last injections and wants new ones Personal History Red flag PMH: none Pain Pain level (0-10): 5 Pain duration: 2 WEEKS Pain location: inside (medial) Pain quality: sharp Pain timing: increases with activity Associated signs & symptoms: none Ambulatory data Ambulatory device: none Walking distance (minutes): 30 Treatments Number of previous injections: 2 Improvement with previous injections: Yes Number of Physical Therapy sessions: 12 (SOME CHANGE) Improvement with PT: No Improvement with NSAIDS: yes Review of Systems Review of Systems: All systems negative unless otherwise noted in HPI.
[2025-03-27 15:21] VITALS: BP 130/84; PULSE 91; RESP 18; TEMP 36.6; O2SAT 97; BMI 28.3
== END 2025-03-27 14:50 | disposition home or self-care (01) ==
LOC: HODSRG 13:56
PROVIDERS: Supervising Provider Orthopaedic Surgery Adult Reconstructive Orthopaedic Surgery; Visit Provider Orthopaedic Surgery Adult Reconstructive Orthopaedic Surgery
DX: M17.0 Bilateral primary osteoarthritis of knee (principal); M25.562 Pain in left knee; M25.561 Pain in right knee
CPT/HCPCS: 20610; 99213; J1010; J2795; G0463